=== PATIENT | female | born 2000 | race Caucasian/White ===

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

== ENCOUNTER → 2019-05-13 | Outpatient (CLI) | payer BC ==
[2017-02-25 16:52] VITALS: BP 130/63
[~2019-05-13] MED LIST: OMEP40CA45 PO; OXYC1TAB15 PO
--- NOTE | 2019-05-13 13:58 | KCIC ---
MR of the left knee HISTORY: Left knee pain. Cannot straighten knee. Injury April 27, 2019. TECHNIQUE: Routine multiplanar sequences are obtained. FINDINGS: No evidence of medial meniscal tear. No evidence of lateral meniscal tear. 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 There is some fluid signal within the anterior cruciate ligament compatible with a ganglion. No evidence of ACL rupture or displacement. Posterior cruciate ligament intact. Medial collateral ligament intact. Iliotibial band unremarkable. Fibular collateral ligament, biceps femoris tendon and popliteus tendon are intact. Extensor mechanism intact. No significant joint effusion. No evidence of acute articular cartilage defect or advanced DJD. No acute fracture. No aggressive bone destruction. No significant Souza's cyst. IMPRESSION: 1. No evidence of meniscal tear. 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 2. Signal within the anterior cruciate ligament, compatible with ganglion. No evidence of acute ACL tear. Electronically signed by: Kamran Nance MD (05/13/2019 1:55 PM) [id number]
== END | disposition home or self-care (01) ==
LOC: KCIC MRI 10:37
PROVIDERS: ATTEND Physician Assistant
DX: M23.362 Other meniscus derangements, other lateral meniscus, left knee (principal)
CPT/HCPCS: 73721

== ENCOUNTER → 2019-08-05 | Outpatient (CLI) | payer BC ==
[2017-02-25 16:52] VITALS: BP 130/63
== END | disposition home or self-care (01) ==
LOC: LAB 13:27
PROVIDERS: ATTEND Orthopaedic Surgery
DX: Z11.59 Encounter for screening for other viral diseases (principal)
CPT/HCPCS: 36415; U0003

== ENCOUNTER → 2019-08-10 | Day surgery (SDC) | payer BC ==
[~2019-08-10] VITALS: Ht 165.1 cm; Wt 50.3 kg
[~2019-08-10] MED LIST changes: +BUPIVACAINE-EPI 0.5%-1:200000 MPF 30 ML VIAL. ONE; +DEXAMETHASONE SOD PHOS 4 MG/ML VIAL ONE; +HYDROmorphone 2 MG/ML VIAL IV PRN; +IV RINGERS,LACTATED 1000ML 1,000 ML IV SCH; +KETOROLAC 30 MG/ML VIAL. ONE; +LIDOCAINE 2% PF 5 ML VIAL. ONE; +MIDAZOLAM HCL/PF 2 MG/2 ML VIAL. ONE; +MORPHINE SULFATE 2 MG/ML VIAL. IV PRN; +ONDANSETRON PF 4 MG/2 ML VIAL. IV PRN; +ONDANSETRON PF 4 MG/2 ML VIAL. ONE; +PROCHLORPERAZINE 10 MG/2 ML VIAL. IV PRN; +PROPOFOL 10 MG/ML (20ML) VIAL. IV ONE; +SCOPOLAMINE 1.5MG PATCH. TD ONE; +ceFAZolin SODIUM IV Push 1 GM VIAL. IVP ONE; +fentaNYL PF VIAL 100 MCG/2 ML VIAL IV PRN; +fentaNYL PF VIAL 100 MCG/2 ML VIAL ONE; +oxyCODONE/APAP 5/325 1 TAB TABLET PO ONE
--- NOTE | 2019-08-10 10:18 | DISCH ---
DISCHARGE INSTRUCTIONS Condition on Discharge Condition on Discharge: Stable Activity After Discharge Activity Instructions for Disc: Other, see below (Weightbearing as tolerated avoid uneven ground or extreme flexion of the knee) Weight Bearing Status after Di: As tolerated Diet after Discharge Diet after Discharge: Regular Wound Incision Care Wound/Incision Care: Ice to area for comfort, Change dressing (May remove dressing in 2 days may then shower no soaking until sutures removed) Community/Resources/Services Services at Discharge: PT EVALUATE & TREAT Contacting the DRRogelio after DC Call your doctor for: Concerns you may have Follow-Up Follow up with: Dr. Escobar 1 week KANIKA ESCOBAR MD Aug 10, 2019 10:18
--- NOTE | 2019-08-10 11:35 | PDOC4 ---
Operative Note Operative Note Date of surgery: 08/10/2019 Preoperative diagnosis: Meniscal tear and ganglion cyst anterior to anterior cruciate ligament, pain and inability to get left knee into extension Postoperative diagnosis: Fraying of lateral meniscus root and likely impingement of plica and fat pad on medial compartment and intercondylar notch Operative procedure: Left knee arthroscopy partial lateral meniscectomy debridement of fat pad and medial plica Surgeon: Shawn Vehicle Dynamics Engineer: Saeed boyd assist Anesthesia: General Estimated blood loss: 2 cc Complications: None Operative indications: Please see my orthopedic clinic note for detailed operative indications but note that Cyndi continues to have severe left knee pain and inability to get her knee out straight and a locking catching sort of feeling and attempting to do so. MRI had shown meniscus tear and a ganglion cyst on the anterior cruciate ligament and we had discussed how particularly the ganglion cyst could impinge on the intercondylar notch area making it painful or difficult for her to achieve extension either resting or walking as she had observed. I had gone over with her the planned evaluation with examination under anesthesia of her kneecap tracking ligament examination of both knees and evaluating her with the arthroscope attempting to address both conditions or any other pathology identified. I did go over with her the possibility of infection nerve or blood vessel damage continued pain medical or other anesthetic complications among others and she wishes to proceed with surgical evaluation and treatment. Operative text: Patient was identified procedure verified patient placed in the supine position on the operating table. After adequate amounts of general anesthesia were administered both knees were examined under anesthesia and found to have equivalent normal ligament examination with no laxity of the anterior or posterior cruciate ligament collateral ligaments no posterior lateral rotatory instability or abnormality and patellar tracking. The left lower extremity was then prepped and draped in standard sterile fashion with a thigh tourniquet and after timeout was performed patient procedure identified and verified the left lower extremity was exsanguinated by Esmarch bandage tourniquet inflated to 250 mmHg and a lateral portal was established medial portal established using spinal needle localization and the knee joint was systematically examined. No loose bodies were noted in the gutters or suprapatellar pouch she had good patellofemoral tracking with no chondral defect. She did have a large fat pad that seemed to impinge significantly on the medial compartment and intercondylar notch area and that was debrided back to stable tissue along with a medial parapatellar plica that appeared to cause some mild cartilage irritation or fraying at the medial aspect of the distal medial femoral condyle. ACL was probed and found to be intact and noted to have an anatomic variant but no cyst was noted anteriorly and there was no impingement in the intercondylar notch following debridement of the fat pad. She did have fraying of the posterior root lateral meniscus which was trimmed back to stable tissue with the arthroscopic shaver but remaining meniscus was probed both medially and laterally with no evidence of tear or displacement. The knee was again toward to ensure no loose bodies and was drained of arthroscopic fluid injected with half percent Marcaine with epinephrine. Portals closed with nylon suture sterile compressive dressings were placed. She was returned to recovery room in stable condition having tolerated procedure well toes were noted to be warm pink following deflation of the tourniquet. Saeed boyd assist was present for the procedure assisted in the prepping draping positioning portal closure and dressing KANIKA VICTOR MD Aug 10, 2019 11:35
[2019-08-10 12:00] VITALS: BP 130/58
== END ==
LOC: SURG 08:51
PROVIDERS: ATTEND Orthopaedic Surgery
DX: S83.241A Other tear of medial meniscus, current injury, right knee, initial encounter (principal); M25.861 Other specified joint disorders, right knee; D64.9 Anemia, unspecified; X58.XXXA Exposure to other specified factors, initial encounter; Y93.89 Activity, other specified; Y92.89 Other specified places as the place of occurrence of the external cause; Y99.8 Other external cause status
CPT/HCPCS: 29875; 29881; 81025; A7015; J0690; J1100; J1885; J2250; J2405; J2704; J3010; J3490; J7120

== ENCOUNTER → 2020-05-11 | Outpatient (CLI) | payer BC ==
[2019-08-10 12:00] VITALS: BP 130/58
[~2020-05-11] MED LIST changes: -BUPIVACAINE-EPI 0.5%-1:200000 MPF 30 ML VIAL. ONE; -DEXAMETHASONE SOD PHOS 4 MG/ML VIAL ONE; -HYDROmorphone 2 MG/ML VIAL IV PRN; -IV RINGERS,LACTATED 1000ML 1,000 ML IV SCH; -KETOROLAC 30 MG/ML VIAL. ONE; -LIDOCAINE 2% PF 5 ML VIAL. ONE; -MIDAZOLAM HCL/PF 2 MG/2 ML VIAL. ONE; -MORPHINE SULFATE 2 MG/ML VIAL. IV PRN; -ONDANSETRON PF 4 MG/2 ML VIAL. IV PRN; -ONDANSETRON PF 4 MG/2 ML VIAL. ONE; -PROCHLORPERAZINE 10 MG/2 ML VIAL. IV PRN; -PROPOFOL 10 MG/ML (20ML) VIAL. IV ONE; -SCOPOLAMINE 1.5MG PATCH. TD ONE; -ceFAZolin SODIUM IV Push 1 GM VIAL. IVP ONE; -fentaNYL PF VIAL 100 MCG/2 ML VIAL IV PRN; -fentaNYL PF VIAL 100 MCG/2 ML VIAL ONE; -oxyCODONE/APAP 5/325 1 TAB TABLET PO ONE
[2020-05-11 08:21] LABS: BASO % 1 % (0-3); EOS # 0.2 x10^3/uL (0.0-0.7); EOS % 3 % (0-3); HEMATOCRIT 38.4 % (36.0-47.0); HEMOGLOBIN 12.8 g/dL (12.0-15.5); LYMPH # 2.9 x10^3/uL (1.0-4.8); LYMPH % 45 % (24-48); MEAN CORPUSCULAR HEMOGLOBIN 30 pg (25-35); MEAN CORPUSCULAR HGB CONC 33 g/dL (31-37); MEAN CORPUSCULAR VOLUME 89 fL (79-100); MONO # 0.5 x10^3/uL (0.0-1.1); MONO % 7 % (0-9); NEUT % 45 % (31-73); PLATELET COUNT 260 x10^3/uL (140-400); RED BLOOD COUNT 4.32 x10^6/uL (3.50-5.40); RED CELL DISTRIBUTION WIDTH 12.6 % (11.5-14.5); WHITE BLOOD COUNT 6.6 x10^3/uL (4.0-11.0)
== END ==
LOC: LAB 07:39
PROVIDERS: ATTEND Physician Assistant
DX: D50.8 Other iron deficiency anemias (principal); E55.9 Vitamin D deficiency, unspecified
CPT/HCPCS: 36415; 82306; 82728; 83540; 83550; 85025

== ENCOUNTER → 2020-10-26 | Outpatient (CLI) | payer BC ==
[2019-08-10 12:00] VITALS: BP 130/58
[~2020-10-26] MED LIST changes: -OMEP40CA45 PO; +OMEP40CA7 PO
[2020-10-26 14:42] LABS: BASO % 1 % (0-3); EOS # 0.1 x10^3/uL (0.0-0.7); EOS % 2 % (0-3); HEMATOCRIT 40.1 % (36.0-47.0); HEMOGLOBIN 13.9 g/dL (12.0-15.5); LYMPH # 2.2 x10^3/uL (1.0-4.8); LYMPH % 30 % (24-48); MEAN CORPUSCULAR HEMOGLOBIN 32 pg (25-35); MEAN CORPUSCULAR HGB CONC 35 g/dL (31-37); MEAN CORPUSCULAR VOLUME 91 fL (79-100); MONO # 0.4 x10^3/uL (0.0-1.1); MONO % 5 % (0-9); NEUT # 4.6 x10^3/uL (1.8-7.7); NEUT % 63 % (31-73); PLATELET COUNT 268 x10^3/uL (140-400); RED CELL DISTRIBUTION WIDTH 11.8 % (11.5-14.5); WHITE BLOOD COUNT 7.3 x10^3/uL (4.0-11.0)
== END ==
LOC: LAB 14:15
PROVIDERS: ATTEND Internal Medicine Hematology & Oncology
DX: E61.1 Iron deficiency (principal)
CPT/HCPCS: 36415; 82728; 83540; 83550; 85025